=== PATIENT | female | born 1985 | race Caucasian/White ===

== ENCOUNTER 2016-12-12 23:55 | Outpatient (CLI) | payer MEDICARE ==
[2016-12-13 00:49] LABS: APPEARANCE,URINE CLOUDY; BILIRUBIN,URINE NEGATIVE (NEGATIVE); CALCIUM OXALATE CRYSTALS,URINE TOO NUMEROUS TO CNT /HPF; GLUCOSE, URINE NEGATIVE (NEGATIVE); KETONES,URINE NEGATIVE (NEGATIVE); LEUKOCYTE ESTERASE,URINE TRACE (NEGATIVE); NITRITE,URINE NEGATIVE (NEGATIVE); PROTEIN,URINE NEGATIVE (NEGATIVE); URINE SPECIFIC GRAVITY 1.026; UROBILINOGEN,URINE NEGATIVE mg/dL (<2.0)
[2016-12-13 01:02] LABS: URINE BARBITURATES SCREEN NEGATIVE; URINE METHADONE SCREEN NEGATIVE; URINE PHENCYCLIDINE SCREEN NEGATIVE
[2016-12-13] MEDS ORDERED: HYDROXYZINE PAMOATE 50 MG CAPSULE PO ONE (01:03)
[2016-12-13] MEDS ORDERED: HYDROXYZINE PAMOATE 50 MG CAPSULE ONE (01:08)
--- NOTE | 2016-12-13 04:49 | L&D Flow Sheet ---
LD Flowsheet Datetime Report Generated by CPN: 12/13/2016 04:45 Datetime: 12/13/2016 01:11 Vital Signs Stage of : OB Triage (Crystal [place], RN) Communication Comments: Pt left unit ambulatory, Pt care relinquished. (Crystal Nuha, RN) Datetime: 12/13/2016 01:04 Medications Antiemetics/Antacids: Vistaril (mg) @ 50 mg (Crystal [place], RN) Datetime: 12/13/2016 01:00 Vital Signs Stage of : OB Triage (Rosalinda Breen RN) Strip Reviewed by: Lizbeth Breen RN (Rosalinda Gregorys, LUIS) Communication Communication: Provider Orders Received; Call/Page Placed to Provider (Rosalinda Breen RN) Provider Notified (Name): Schaefer (Rosalinda Breen RN) Notification Reason: Status Update; Pain (Rosalinda Breen RN) Communication Comments: Received orders to offer pt 50 mg vistaril PO and encourage to drink water, Pt may DC home with dehydration information. (Rosalinda Breen RN) Datetime: 12/13/2016 00:33 Uterine Activity Monitor Mode: External; Palpation (Crystal Nuha, RN) Frequency (min): 0 (Crystal Nuha, RN) Resting Tone (Palpate): Relaxed (Crystal [place], RN) Assessment A Monitor Mode: External US (Crystal [place], RN) FHR Baseline Rate : 130 (Crystal Nuha, RN) Variability: Moderate 6-25 bpm (Crystal [place], RN) Accelerations: 15X15 (Crystal Nuha, RN) Decelerations: None (Crystal Nuha, RN) Patient Care Patient Position/Activity: Left Lateral (Crystal Nuha, RN) I/O Interventions: Clear Liquids Given (Crystal [place], RN) Datetime: 12/13/2016 00:24 NBP Sys/Kimberly/Mean (mmHg): 132 (QS system process) : 73 (QS system process) : 96 (QS system process) Pulse: 102 (QS system process) Datetime: 12/13/2016 00:06 Pain Pain Scale: 3 (Crystal [place], RN) Pain Presence: Intermittent (Crystal Nuha, RN) Pain Type: Pressure; Ache (Crystal Nuha, RN) Pain Location: Back; Perineum; Coccyx; Sacrum (Crystal [place], RN) Pain Goal: 2 (Crystal [place], RN) Pain Relief Measures: Comfort Measures (Crystal Nuha, RN) Vaginal Exam Vaginal Bleeding: None (Crystal Nuha, RN) Maternal Assessment Level of Consciousness: Fully Conscious (Crystal [place], RN) DTR's/Clonus: DTRs 1+; No Clonus (Crystal Nuha, RN) Headache: Denies (Crystal Nuha, RN) Breath Sounds, Left: Clear and Equal (Crystal Nuha, RN) Breath Sounds, Right: Clear and Equal (Crystal [place], RN) Nausea/Vomiting: Denies (Crystal [place], RN) RUQ Epigastric Pain: Denies (Crystal [place], RN) Teaching Instructional Method: Verbal; Patient Instructed; Verbalized Understanding (Rosalinda Breen RN) Plan of Care: Plan of Care Discussed (Rosalinda Breen RN) Unit Routine: Odem to Room; Call Melvin; Bed (Rosalinda Breen RN) Pain Management: Comfort Measures (Rosalinda Breen RN) Related: Common Discomforts of (Rosalinda Breen RN)
--- NOTE | 2016-12-13 04:49 | L&D Admission Assessment ---
LD ADM ASMT Datetime Report Generated by CPN: 12/13/2016 04:45 PATIENT ASSESSMENT Assessment Type: Triage (12/13/2016 00:06:Crystal Fenton, RN) WEIGHT Weight (lb): 367 (12/13/2016 00:36:QS system process) Weight (kg): 166.8 (12/13/2016 00:36:QS system process) PAIN Pain Scale: 3 (12/13/2016 00:06:Crystal Nuha, RN) Pain Presence: Intermittent (12/13/2016 00:06:Crystal Fenton, RN) Pain Type: Pressure; Ache (12/13/2016 00:06:Crystal Fenton, RN) Pain Location: Back; Perineum; Coccyx; Sacrum (12/13/2016 00:06:Crystal Fenton, RN) Pain Goal: 2 (12/13/2016 00:06:Crystal Fenton, RN) Pain Related to Contraction: No (12/13/2016 00:06:Crystal Nuha, RN) CONTRACTIONS Frequency (min): 0 (12/13/2016 00:33:Crystal Fenton, RN) Resting Tone [place]: Relaxed (12/13/2016 00:33:Crystal Nuha, RN) NEURO Level of Consciousness: Fully Conscious (12/13/2016 00:06:Crystal Fenton, RN) DTR's/Clonus: DTRs 1+; No Clonus (12/13/2016 00:06:Crystal Fenton, RN) Headache: Denies (12/13/2016 00:06:Crystal Fenton, RN) Dizziness: No (12/13/2016 00:06:Crystal Nuha, RN) Blurred Vision: No (12/13/2016 00:06:Crystal Nuha, RN) Extremity Numbness/Tingling : Right Arm (12/13/2016 00:06:Crystal Nuha, RN) Extremity Movement: Full Range of Motion (12/13/2016 00:06:Crystal Fenton, RN) CARDIOVASCULAR Heart Rhythm: Regular (12/13/2016 00:06:Crystal Nuha, RN) Nailbeds: [place] (12/13/2016 00:06:Crystal Nuha, RN) Capillary Refill: Less than 3 Seconds (12/13/2016 00:06:Crystal Nuha, RN) Lower Extremities Edema: Bilateral Lower Extremities (12/13/2016 00:06:Crystal Fenton, RN) Lower Extremities Edema Degree: 1+ (12/13/2016 00:06:Crystal Nuha, RN) Upper Extremities Edema: None (12/13/2016 00:06:Rosalinda Breen RN) Upper Extremities Edema Degree: None (12/13/2016 00:06:Rosalinda Breen RN) Facial Edema: None (12/13/2016 00:06:Rosalinda Breen RN) Geovanni's Sign Left Leg: Negative (12/13/2016 00:06:Rosalinda Gregorys RN) Geovanni's Sign Right Leg: Negative (12/13/2016 00:06:Rosalinda Fenton, RN) DVT RISK ASSESSMENT DVT Risk Age: Age less than 41 years (12/13/2016 00:06:Rosalinda Breen RN) DVT Risk BMI: BMI >50 (Venous Stasis Syndrome) (12/13/2016 00:06:Rosalinda Breen RN) DVT Risk Surgery: None Applicable (12/13/2016 00:06:Rosalinda Breen RN) DVT Risk Other: None Applicable (12/13/2016 00:06:Rosalinda Breen RN) DVT Risk Total: 3 (12/13/2016 00:06:QS system process) DVT Risk Text: High Risk (20-40%)- Consider stockings, compresssion device, pharmacological therapy per hospital policy (12/13/2016 00:06:QS system process) RESPIRATORY Respiratory Effort: Labored; Regular Rhythm; Equal Expansion (12/13/2016 00:06:Crystal Fenton, RN) Breath Sounds, Left: Clear and Equal (12/13/2016 00:06:Crystal Fenton, RN) Breath Sounds, Right: Clear and Equal (12/13/2016 00:06:Crystal Nuha, RN) Cough Productivity: None (12/13/2016 00:06:Crystal Nuha, RN) GASTROINTESTINAL Nausea/Vomiting: Denies (12/13/2016 00:06:Crystal Nuha, RN) Bowel Sounds: Normoactive (12/13/2016 00:06:Crystal Nuha, RN) RUQ Epigastric Pain: Denies (12/13/2016 00:06:Crystal Nuha, RN) Bowel Patterns: Soft, Formed Stool (12/13/2016 00:06:Crystal Fenton, RN) Hemorrhoids: None (12/13/2016 00:06:Crystal Fenton, RN) Diet Type: Regular diet (12/13/2016 00:06:Crystal Fenton, RN) Last Meal: 12/13/2016 17:00 (12/13/2016 00:06:Crystal Nuha, RN) GENITOURINARY Bladder: Nondistended (12/13/2016 00:06:Crystal Fenton, RN) Frequency of Urination: No (12/13/2016 00:06:Crystal Nuha, RN) Urination Burning: No (12/13/2016 00:06:Crystal Fenton, RN) CVA Tenderness: No (12/13/2016 00:06:Crystal Fenton, RN) Vaginal Bleeding: None (12/13/2016 00:06:Crystal Fenton, RN) Vaginal Discharge Amount: None (12/13/2016 00:06:Crystal Nuha, RN) Vaginal Discharge Color: N/A (12/13/2016 00:06:Crystal Fenton, RN) Vaginal Discharge Odor: Odorous (12/13/2016 00:06:Crystal Nuha, RN) Vaginal Discharge Character: None (12/13/2016 00:06:Crystal Fenton, RN) INTEGUMENTARY Skin Color: Normal for Race (12/13/2016 00:06:Crystal Nuha, RN) Skin Temperature: Warm (12/13/2016 00:06:Crystal Nuha, RN) Skin Moisture: Dry (12/13/2016 00:06:Crystal Fenton, RN) DALJIT SKIN ASSESSMENT Daljit Scale Sensory Perception: No Impairment- Responds to verbal commands. Has no sensory deficit which would limit ability to feel or voice pain or discomfort (12/13/2016 00:06:Rosalinda Breen RN) Daljit Scale Moisture: Rarely Moist- Skin is usually dry. Linen only requires changing at routine intervals (12/13/2016 00:06:Rosalinda Breen RN) Daljit Scale Activity: Walks Frequently- Walks outside the room at least twice a day and inside room at least every 2 hours during the day. (12/13/2016 00:06:Rosalinda Breen RN) Daljit Scale Mobility: No Limitations- Makes major and frequent changes in position without assistance (12/13/2016 00:06:Rosalinda Breen RN) Daljit Scale Nutrition: Excellent- Eats most of every meal. Never refuses a meal. Usually eats a total of 4 or more servings of meat and dairy products. Occasionally eats between meals. Does not require supplementation (12/13/2016 00:06:Rosalinda Breen RN) Daljit Scale Friction and Shear: No Apparent Problem- Moves in bed and in chair independently and has sufficient muscle strength to lift up completely during move. Maintains good position in bed or chair at all times (12/13/2016 00:06:Rosalinda Breen RN) Daljit Scale Total: 23 (12/13/2016 00:06:QS system process) Daljit Scale Risk: No Risk of Pressure Ulcer Noted at this Time (12/13/2016 00:06:QS system process) SUPPORT Family Support: Family supportive (12/13/2016 00:06:Crystal Fenton, RN) Emotional State: Calm/Relaxed (12/13/2016 00:06:Crystal Fenton, RN) SAFETY Call Melvin Within Reach: Yes (12/13/2016 00:06:Crystal Nuha, RN) Side Rails Up: Yes (12/13/2016 00:06:Crystal Fenton, RN) Bed Wheels Locked: Yes (12/13/2016 00:06:Crystal Fenton, RN) Arm Bands Present: Yes (12/13/2016 00:06:Crystal Fenton, RN) Isolation: [place] (12/13/2016 00:06:Crystal Fenton, RN) FALL SCREEN Fall Risk History of Falling: (0) No (12/13/2016 00:06:Rosalinda Breen RN) Fall Risk Secondary Diagnosis: (0) No (12/13/2016 00:06:Rosalinda Breen RN) Fall Risk Ambulatory Aid: (0) None/Bedrest/Wheelchair/Nurse Assist (12/13/2016 00:06:Rosalinda Breen RN) Fall Risk IV Therapy: (0) No (12/13/2016 00:06:Rosalinda Breen RN) Fall Risk Gait: (0) Normal/Bedrest/Immobile (12/13/2016 00:06:Rosalinda Breen RN) Fall Risk Mental Status: (0) Oriented to Own Ability (12/13/2016 00:06:Rosalinda Breen RN) Fall Risk Score: 0 (12/13/2016 00:06:QS system process) Fall Risk Score Definition: No Risk: No action required (12/13/2016 00:06:QS system process) RECENT TRAVEL/INFECTIOUS DISEASE Recent Exp Communicable Disease: No (12/13/2016 00:06:Rosalinda Breen RN) Cough or Fever: No (12/13/2016 00:06:Rosalinda Breen RN) Foreign Travel Past 10 Days: No (12/13/2016 00:06:Rosalinda Breen RN) Open Wounds or Sores: No (12/13/2016 00:06:Rosalinda Breen RN) Prior Antibiotic Resistance Tx: No (12/13/2016 00:06:Rosalinda Breen RN) Cultures Obtained: Not Applicable (12/13/2016 00:06:Rosalinda Breen RN) Isolation Initiated: No (12/13/2016 00:06:Rosalinda Breen RN) Pt/Family Education: Not Applicable (12/13/2016 00:06:Rosalinda Breen RN) BABY A FHR Baseline Rate (bpm) Baby A: 130 (12/13/2016 00:33:Rosalinda Breen RN) Variability Baby A: Moderate 6-25 bpm (12/13/2016 00:33:Rosalinda Breen RN) Accelerations Baby A: 15X15 (12/13/2016 00:33:Rosalinda Breen RN) Decelerations Baby A: None (12/13/2016 00:33:Rosalinda Breen RN)
--- NOTE | 2016-12-13 04:49 | L&D Current Admission ---
Current Admit Datetime Report Generated by CPN: 12/13/2016 04:45 ADMISSION INFORMATION Chief Complaint: Other (Annotations: "Pressure and pain in butt and crotch area") (12/13/2016 00:06:Rosalinda Breen RN)
--- NOTE | 2016-12-13 04:49 | L&D General Admission ---
General Admit Datetime Report Generated by CPN: 12/13/2016 04:45 INFORMATION Patient Age: 31 (12/12/2016 23:55:QS system process) EDC: 02/21/2017 00:00 (12/13/2016 00:01:Vale Small RN) : 1 (12/13/2016 00:01:Vale Small RN) Para: 0 (12/13/2016 01:18:Rosalinda Breen RN) Para: 0 (12/13/2016 00:01:Vale Small RN) Term: 0 (12/13/2016 00:01:Vale Small RN) : 0 (12/13/2016 00:01:Vale Small RN) Spontaneous Abortions: 0 (12/13/2016 00:01:Vale Small RN) Induced Abortions: 0 (12/13/2016 00:01:Vale Small RN) Livin (12/13/2016 00:01:Vale Small RN) Cesareans: 0 (12/13/2016 00:01:Vale Small RN) VBACs: 0 (12/13/2016 00:01:Vale Small RN) Ectopic: 0 (12/13/2016 00:01:Vale Small RN) Multiple Births: 0 (12/13/2016 00:01:Vale Small RN) Baby, Number in Womb: 1 (12/13/2016 01:18:Rosalinda Breen RN) Baby, Number in Womb: 1 (12/13/2016 00:01:Vale Small RN) CARE Primary Real Estate Sales Agent: [facility] (12/13/2016 00:01:Vale Small RN) Adequate Care: Yes (12/13/2016 00:01:Rosalinda Breen RN) Height (in): 64 (12/13/2016 00:36:QS system process) ALLERGIES Medication Allergy: No (12/13/2016 00:01:Vale Small RN) Medication Allergies: No Known Allergies (11/12/2016) (12/12/2016 23:55:QS system process) Latex Allergy: No Latex Allergies (12/13/2016 00:01:Rosalinda Breen RN) COMMUNICATION Primary Language: Hungarian (12/13/2016 00:01:Rosalinda Breen RN) Communication Barrier(s): None (12/13/2016 00:01:Rosalinda Breen RN) DEMOGRAPHICS Address: [address] [place] [id number] (12/12/2016 23:55:QS system process) Zipcode: [address] (12/12/2016 23:55:QS system process) Home (12/12/2016 23:55:QS system process) SSN: [id number] (12/12/2016 23:55:QS system process) Next of Kin Name: DAVID CAMPOS (12/12/2016 23:55:QS system process) Next of Kin (12/12/2016 23:55:QS system process) Next of Kin Relationship: FA (12/12/2016 23:55:QS system process) Date of : 1985 (12/12/2016 23:55:QS system process) Marital Status: Single (12/12/2016 23:55:QS system process) Sex: Female (12/12/2016 23:55:QS system process) Race: (12/12/2016 23:55:QS system process) Ethnicity: Non- or (12/12/2016 23:55:QS system process) Jewish: None (12/12/2016 23:55:QS system process) DRUG AND ALCOHOL USE Alcohol: No (12/13/2016 00:01:Rosalinda Breen RN) Cigarettes: Never Smoker. [id number] (12/13/2016 00:01:Rosalinda Breen RN) Marijuana: No (12/13/2016 00:01:Rosalinda Breen RN) Cocaine: No (12/13/2016 00:01:Rosalinda Breen RN) Other Illicit Drugs: No (12/13/2016 00:01:Rosalinda Breen RN) VACCINE HISTORY Influenza Vaccine: Yes (12/13/2016 00:01:Rosalinda Breen RN) Influenza Date: 2015 (12/13/2016 00:01:Rosalinda Breen RN) Pneumococcal Vaccine: Yes (12/13/2016 00:01:Rosalinda Breen RN) Pneumococcal Date: 2015 (12/13/2016 00:01:Rosalinda Breen RN) Tetanus Vaccine: Uncertain (12/13/2016 00:01:Rosalinda Breen RN) Tdap Vaccine: No (12/13/2016 00:01:Rosalinda Breen RN) Hepatitis B Vaccine: No (12/13/2016 00:01:Rosalinda Breen RN) Feeding Preference: Breast (12/13/2016 00:01:Rosalinda Breen RN) Benefit of Breast Feed Discussed: Yes (12/13/2016 00:01:Rosalinda Breen RN) Circumcision: Yes (12/13/2016 00:01:Rosalinda Breen RN) Classes Attended: No (12/13/2016 00:01:Rosalinda Breen RN) Tubal Ligation: No (12/13/2016 00:01:Rosalinda Breen RN) Tubal Authorization Signed: N/A (12/13/2016 00:01:Rosalinda Breen RN) Consent: N/A (12/13/2016 00:01:Rosalinda Breen RN) Consent Signed: N/A (12/13/2016 00:01:Rosalinda Breen RN) Pain Management Plans: Local (12/13/2016 00:01:Rosalinda Breen RN) Plans for Labor and Delivery: None (12/13/2016 00:01:Rosalinda Breen RN) Support Person: David Campos (12/13/2016 00:01:Rosalinda Breen RN) Support Person Relationship: Other (12/13/2016 00:01:Rosalinda Breen RN) Other Relationship: Father (12/13/2016 00:01:Rosalinda Breen RN) Cultural/Spritual Practice: No (12/13/2016 00:01:Rosalinda Breen RN) Spir/Cult Dietary Needs: No (12/13/2016 00:01:Rosalinda Breen RN) LIVING SITUATION/DISCHARGE PLAN Living Arrangements: House (12/13/2016 00:01:Rosalinda Breen RN) Adequate Access to:: Electric; Heat; Refrigeration; Plumbing/Running water; Phone; Transportation (12/13/2016 00:01:Rosalinda Breen RN) WIC Program: Yes (12/13/2016 00:01:Rosalinda Breen RN) Discharge Forestry And Wildlife Manager Person: David Campos (12/13/2016 00:01:Rosalinda Breen RN) Person to Help after Discharge: David Campos (12/13/2016 00:01:Rosalinda Breen RN) Currently Using Commun Resources: Yes (12/13/2016 00:01:Rosalinda Breen RN) Outside Agency/Protective Officer: Yes (12/13/2016 00:01:ADRIAN Carreon Car Seat for Discharge: Yes (12/13/2016 00:01:Rosalinda Breen RN) Adoption Requested: No (12/13/2016 00:01:Rosalinda Breen RN) Pt Contact w/ Post : N/A (12/13/2016 00:01:Rosalinda Breen RN) LABS Blood Type: B Positive (12/13/2016 00:01:Vale Small RN) Antibody Screen: Negative (12/13/2016 00:01:Vale Small RN) Rho(G) this : Not Applicable (12/13/2016 00:01:Vale Small RN) RPR/VDRL: Nonreactive (12/13/2016 00:01:Vale Small RN) HIV Results: Negative (12/13/2016 00:01:Vale Small RN) Hepatitis B: Negative (12/13/2016 00:01:Vale Small RN) Rubella: Non-Immune (12/13/2016 00:01:Vale Small RN) OB/PREVIOUS HISTORY Current Procedures: Ultrasound (12/13/2016 00:01:Rosalinda Breen RN) History of Previous : No (12/13/2016 00:01:Rosalinda Breen RN) History of Gestational Diabetes: No (12/13/2016 00:01:Rosalinda Breen RN) History of PIH: No (12/13/2016 00:01:Rosalinda Breen RN) History of Incompetent Cervix: No (12/13/2016 00:01:Rosalinda Breen RN) History of Placenta Previa/Abrup: No (12/13/2016 00:01:Rosalinda Breen RN) History of Macrosomia: No (12/13/2016 00:01:Rosalinda Breen RN) History of IUGR: No (12/13/2016 00:01:Rosalinda Breen RN) History of Hemorrhage: No (12/13/2016 00:01:Rosalinda Breen RN) History of Loss/Stillborn: No (12/13/2016 00:01:Rosalinda Breen RN) History of : No (12/13/2016 00:01:Rosalinda Breen RN) History of D (Rh) Sensitization: No (12/13/2016 00:01:Rosalinda Breen RN) History Recurrent Loss/Stillborn: No (12/13/2016 00:01:Rosalinda Breen RN) History Depression/PP Depression: Yes (12/13/2016 00:01:Rosalinda Breen RN) History of Uterine Anomaly/JAVIER: No (12/13/2016 00:01:Rosalinda Breen RN) History of Infertility: No (12/13/2016 00:01:Rosalinda Breen RN) History of ART Treatment: No (12/13/2016 00:01:Rosalinda Breen RN) History of JAVIER: No (12/13/2016 00:01:Rosalinda Breen RN) MEDICAL HISTORY Med Hx Diabetes: No (12/13/2016 00:01:Rosalinda Breen RN) Med Hx Hypertension: No (12/13/2016 00:01:Rosalinda Breen RN) Med Hx Heart Disease: No (12/13/2016 00:01:Rosalinda Breen RN) Med Hx Autoimmune Disorder: No (12/13/2016 00:01:Rosalinda Breen RN) Med Hx Kidney Disease/UTI: No (12/13/2016 00:01:Rosalinda Breen RN) Med Hx Neurologic/Epilepsy: No (12/13/2016 00:01:Rosalinda Breen RN) Med Hx Psychiatric Disorders: Yes (12/13/2016 00:01:Vale Small RN) Med Hx Hepatitis/Liver Disease: No (12/13/2016 00:01:Rosalinda Breen RN) Med Hx Varicosities/Phlebitis: No (12/13/2016 00:01:Rosalinda Breen RN) Med Hx Thyroid Dysfunction: No (12/13/2016 00:01:Rosalinda Breen RN) Med Hx Trauma/Violence: No (12/13/2016 00:01:Rosalinda Breen RN) Med Hx Blood Transfusion: No (12/13/2016 00:01:Rosalinda Breen RN) Med Hx Pulmonary (Asthma,TB): Yes (12/13/2016 00:01:Vale Small RN) Med Hx Breast: No (12/13/2016 00:01:Rosalinda Breen RN) Med Hx ROD POINTER Surgery: No (12/13/2016 00:01:Rosalinda Breen RN) Med Hx Hospitalization/Surgery: No (12/13/2016 00:01:Rosalinda Breen RN) Med Hx Anesthetic Complications: No (12/13/2016 00:01:Rosalinda Breen RN) Med Hx Abnormal Pap Smear: No (12/13/2016 00:01:Rosalinda Breen RN) Other Medical Diseases: No (12/13/2016 00:01:Rosalinda Breen RN) Med Hx Significant Family Hx: No (12/13/2016 00:01:Rosalinda Breen RN) Details of Med/Surg Hx: Bipolar-off meds x 1 year; Asthma (12/13/2016 00:01:Vale Small RN) INFECTIOUS HISTORY Inf Hx Gonorrhea: No (12/13/2016 00:01:Rosalinda Breen RN) Inf Hx Chlamydia: No (12/13/2016 00:01:Rosalinda Breen RN) Inf Hx Syphilis: No (12/13/2016 00:01:Rosalinda Breen RN) Inf Hx HIV/AIDS: No (12/13/2016 00:01:Rosalinda Breen RN) Inf Hx Human Papilloma Virus: No (12/13/2016 00:01:Rosalinda Breen RN) Inf Hx Pt/Partner Genital Herpes: No (12/13/2016 00:01:Rosalinda Breen RN) Inf Hx Tuberculosis/Exposure: No (12/13/2016 00:01:Rosalinda Breen RN) Inf Hx Hepatitis B,C: No (12/13/2016 00:01:Rosalinda Breen RN) Inf Hx Rash or Viral Illness: No (12/13/2016 00:01:Rosalinda Breen RN) GENETIC HISTORY Gen Hx Age >=35 at TRINH: No (12/13/2016 00:01:Rosalinda Breen RN) Gen Hx Thalassemia: No (12/13/2016 00:01:Rosalinda Breen RN) Gen Hx Congenital Heart Defect: No (12/13/2016 00:01:Rosalinda Breen RN) Gen Hx Neural Tube Defect: No (12/13/2016 00:01:Rosalinda Breen RN) Gen Hx Down's Syndrome: No (12/13/2016 00:01:Rosalinda Breen RN) Gen Hx Edinson-Sachs: No (12/13/2016 00:01:Rosalinda Breen RN) Gen Hx Jodie: No (12/13/2016 00:01:Rosalinda Breen RN) Gen Hx Familial Dysautonomia: No (12/13/2016 00:01:Rosalinda Breen RN) Gen Hx Sickle Cell Disease/Trait: No (12/13/2016 00:01:Rosalinda Breen RN) Gen Hx Hemophilia/Blood Disorder: No (12/13/2016 00:01:Rosalinda Breen RN) Gen Hx Muscular Dystrophy: No (12/13/2016 00:01:Rosalinda Breen RN) Gen Hx Cystic Fibrosis: No (12/13/2016 00:01:Rosalinda Breen RN) Gen Hx Huntingtons Chorea: No (12/13/2016 00:01:Rosalinda Breen RN) Gen Hx Mental Retardation/Autism: Yes (12/13/2016 00:01:Rosalinda Breen RN) Gen Hx Tested for Fragile X: No (12/13/2016 00:01:Rosalinda Breen RN) Gen Hx Other Inher/Chromosomal: No (12/13/2016 00:01:Rosalinda Breen RN) Gen Hx Maternal Metabolic DO: Yes (12/13/2016 00:01:Rosalinda Breen RN) Gen Hx Pt Father or FOB Defect: No (12/13/2016 00:01:Rosalinda Breen RN) Gen Hx Other Genetic History: No (12/13/2016 00:01:Rosalinda Breen RN) Gen Hx Drugs/Meds since LMP: No (12/13/2016 00:01:Rosalinda Breen RN) Details of Genetic History: Mothers side diabetes FOB possibly autistic receiving testing (12/13/2016 00:01:Rosalinda Breen RN)
--- NOTE | 2016-12-13 04:49 | Antepartum Discharge Summary ---
Antepartum DC Datetime Report Generated by CPN: 12/13/2016 04:45 DIET/ACTIVITY/RESTRICTIONS Diet: Regular (12/13/2016 01:18:Crystal Nuha, RN) Activity: Normal Activity (12/13/2016 01:18:Crystal Nuha, RN) TEACHING/INSTRUCTIONS/REFERRALS Instructions Given To: Pt and father (12/13/2016 01:18:Crystal Nuha, RN) Instructions Understood: Patient Verbalized Understanding; Support Person Verbalized Understanding (12/13/2016 01:18:Rosalinda Breen RN) Referrals: None (12/13/2016 01:18:Rosalinda Breen RN) Educational Materials- Other: Dehydration, [facility] approved med list (12/13/2016 01:18:Rosalinda Breen RN) DISCHARGE INFORMATION Discharged AMA: No (12/13/2016 01:18:Rosalinda Breen RN) Discharge Date/Time: 12/13/2016 01:19 (12/13/2016 01:18:Rosalinda Breen RN) Discharged To: Home (12/13/2016 01:18:Rosalinda Breen RN) Discharge Provider Name: Schaefer (12/13/2016 01:18:Rosalinda Breen RN) Accompanied By: Father (12/13/2016 01:18:Rosalinda Breen RN) Discharge Method: Ambulatory (12/13/2016 01:18:Rosalinda Breen RN) Condition: Stable (12/13/2016 01:18:Rosalinda Breen RN) FOLLOW UP INFORMATION Follow Up With: [facility] (12/13/2016 01:18:Rosalinda Breen RN) Follow Up On: As Scheduled (12/13/2016 01:18:Rosalinda Breen RN) Follow Up Phone Number: [facility] - (12/13/2016 01:18:Rosalinda Breen RN)
--- NOTE | 2016-12-13 04:49 | L&D Discharge Summary ---
OB Discharge Summary Datetime Report Generated by CPN: 12/13/2016 04:45 DISCHARGE DIAGNOSIS Diagnosis/Symptoms: False Labor; Dehydration Diagnoses/Symptoms Other: Received orders to offer pt 50 mg vistaril PO and encourage to drink water, Pt may DC home with dehydration information. Treatment/Procedures Other: 50 Mg vistaril PO Number of Babies in Womb: 1 Parity: 0 DIET/ACTIVITY/RESTRICTIONS Diet: Regular Activity: Normal Activity TEACHING/INSTRUCTIONS/REFERRALS Instructions Given To: Pt and father Instructions Understood: Patient Verbalized Understanding; Support Person Verbalized Understanding Referrals: None Educational Materials- Other: Dehydration, [facility] approved med list DISCHARGE INFORMATION Discharged AMA: No Discharge Date/Time: 12/13/2016 01:19 Discharged To: Home Discharge Provider Name: Schaefer Accompanied By: Father Discharge Method: Ambulatory Condition: Stable FOLLOW UP INFORMATION Follow Up With: [facility] Follow Up On: As Scheduled Follow Up Phone Number: [facility] -
== END 2016-12-13 01:11 | disposition home or self-care (01) ==
LOC: LC 23:55
PROVIDERS: ATTEND Obstetrics & Gynecology
PROC: 4A1HXCZ Monitoring of Products of Conception, Cardiac Rate, External Approach (ICD-10-PCS; principal; 2016-12-12)
DX: Z34.93 Encounter for supervision of normal pregnancy, unspecified, third trimester (principal); Z3A.30 30 weeks gestation of pregnancy
CPT/HCPCS: 80307; 81001; 59899; A9270

== ENCOUNTER 2017-01-18 08:45 | Outpatient (CLI) | payer MEDICARE, MEDICAID ==
[2017-01-18 09:36] LABS: APPEARANCE,URINE SLIGHTLY-CLOUDY; BILIRUBIN,URINE NEGATIVE (NEGATIVE); GLUCOSE, URINE NEGATIVE (NEGATIVE); KETONES,URINE NEGATIVE (NEGATIVE); LEUKOCYTE ESTERASE,URINE NEGATIVE (NEGATIVE); NITRITE,URINE NEGATIVE (NEGATIVE); PROTEIN,URINE NEGATIVE (NEGATIVE); URINE SPECIFIC GRAVITY 1.023; UROBILINOGEN,URINE NEGATIVE mg/dL (<2.0)
[2017-01-18 09:48] LABS: URINE BARBITURATES SCREEN NEGATIVE; URINE METHADONE SCREEN NEGATIVE; URINE OPIATES LOW NEGATIVE; URINE PHENCYCLIDINE SCREEN NEGATIVE
[2017-01-18 09:51] LABS: BASOPHILS % (AUTO) 0.4 % (0-2); EOSINOPHILS % (AUTO) 1.8 % (0-6); HEMATOCRIT 36.2 % (36.0-47.0); HEMOGLOBIN 12.6 g/dL (12.0-15.5); HGB HCT DIFFERENCE 1.6; LYMPHOCYTES % (AUTO) 16.7 % (13-45); MEAN CORPUSCULAR HEMOGLOBIN 31.7 pg (27.0-33.4); MEAN CORPUSCULAR HGB CONC 34.7 g/dL (32.0-36.0); MEAN CORPUSCULAR VOLUME 91 fl (80-97); MONOCYTES % (AUTO) 5.6 % (3-13); RED BLOOD COUNT 3.97 10^6/uL (3.72-5.28); RED CELL DISTRIBUTION WIDTH 12.9 % (11.5-14.0); SEGMENTED NEUTROPHILS % (AUTO) 75.5 % (42-78); WHITE BLOOD COUNT 9.4 10^3/uL (4.0-10.5)
[2017-01-18 09:52] LABS: ABSOLUTE EOSINOPHILS # (AUTO) 0.2 10^3/uL (0.0-0.6); ABSOLUTE LYMPHOCYTES (AUTO) 1.6 10^3/uL (0.5-4.7); ABSOLUTE MONOCYTES (AUTO) 0.5 10^3/uL (0.1-1.4); ABSOLUTE NEUT (AUTO) 7.1 10^3/uL (1.7-8.2)
--- NOTE | 2017-01-18 10:01 | L&D Flow Sheet ---
LD Flowsheet Datetime Report Generated by CPN: 01/18/2017 10:00 Datetime: 01/18/2017 09:49 NBP Sys/Kimberly/Mean (mmHg): 140 (QS system process) : 65 (QS system process) : 94 (QS system process) Pulse: 77 (QS system process) LaborFlag: OB Triage (QS system process) Datetime: 01/18/2017 09:34 NBP Sys/Kimberly/Mean (mmHg): 138 (QS system process) : 82 (QS system process) : 104 (QS system process) Pulse: 80 (QS system process) LaborFlag: OB Triage (QS system process) Datetime: 01/18/2017 09:19 Vital Signs Stage of : OB Triage (Esme Coker RN) NBP Sys/Kimberly/Mean (mmHg): 142 (QS system process) : 73 (QS system process) : 99 (QS system process) Pulse: 83 (QS system process) Respirations: 16 (Esme Coker RN) Temperature (F): 98.3 (Esme Coker RN) Temperature (C): 36.8 (QS system process) Uterine Activity Monitor Mode: External (Esme Coker, LUIS) Monitor Interventions for UA: [place] Adjusted (Esme Coker, RN) Resting Tone (Palpate): Relaxed (Esme Coker, RN) Assessment A Monitor Mode: External US (Esme Coker, LUIS) Monitor Interventions for FHR: Ultrasound Adjusted (Esme Coker, LUIS) FHR Baseline Rate : 145 (Esme Coker, RN) Pain Pain Scale: 0 (Esme Coker, LUIS) Pain Presence: None/Denies (Esme Coker, LUIS) Pain Type: N/A (Esme Coker, LUIS) Pain Goal: 1 (Esme Coker, LUIS) Pain Relief Measures: Comfort Measures (Esme Coker, LUIS) Vaginal Exam Membrane Status: Intact (Esme Coker, RN) Vaginal Bleeding: None (Esem Anyluis a Coker, RN) Maternal Assessment Level of Consciousness: Fully Conscious (Esme Coker, RN) Headache: Denies (Esme Coker, RN) Nausea/Vomiting: Denies (Esme Coker, RN) RUQ Epigastric Pain: Denies (Esme Rendonnd, RN) Patient Care Patient Position/Activity: Left Lateral (Esme Coker, RN) Comfort Measures: Family Support (Esme Coker RN) I/O Interventions: Popsicle; Clear Liquids Given; Up to BR (Esme Coker RN) Teaching Instructional Method: Verbal; Patient Instructed; Family/Support Person Instructed; Verbalized Understanding (Esme Coker RN) Plan of Care: Plan of Care Discussed; Gestational Hypertension/Preeclampsia/Eclampsia (Esme Coker RN) Unit Routine: [place] to Room; Call [place]; Bed; Visiting Policy; Waiting Areas; Phone/Cell Phone Use; Unit Personnel; Handwashing; Monitoring; Safety/Fall Risk Prevention; Diet/Nutrition Services; Bathroom Privileges (Esme Coker RN) Pain Management: Pain Scale/Goals; Comfort Measures (Esme Coker RN) Related: Common Discomforts of ; Maternal Physical Changes; Maternal Emotional Changes; Nutrition; Hydration; Activity and Rest (Esme Coker RN) Communication Communication: RN at Bedside; RN Reviewed Strip (Esme Coker RN) Provider Notified (Name): Bari TAM CNM (Esme Coker, LUIS) Notification Reason: Status Update; Status; Maternal Vital Sign Change; Lab/Diagnostic Study (Esme Coker, LUIS) Communication Comments: ORDERS TO D/C MONITORS AFTER REACTIVE NST (Esme Coker, LUSI) LaborFlag: OB Triage (QS system process)
[2017-01-18 10:16] LABS: ALANINE AMINOTRANSFERASE 21 U/L (9-52); ALKALINE PHOSPHATASE 104 U/L (38-126); ANION GAP 9 (5-19); ASPARTATE AMINO TRANSFERASE 16 U/L (14-36); BILIRUBIN,TOTAL 0.6 mg/dL (0.2-1.3); BLOOD UREA NITROGEN 9 mg/dL (7-20); CALCIUM 9.3 mg/dL (8.4-10.2); CARBON DIOXIDE 21 mmol/L (22-30); CHLORIDE 103 mmol/L (98-107); GLUCOSE 97 mg/dL (75-110); LDH 395 U/L (313-618); SODIUM 133.4 mmol/L (137-145); TOTAL PROTEIN 6.3 g/dL (6.3-8.2); URIC ACID 6.4 mg/dL (2.5-6.2)
--- NOTE | 2017-01-18 10:52 | Non Stress Test Report ---
Non Stress Test Datetime Report Generated by CPN: 01/18/2017 10:51 DEMOGRAPHIC EGA NST: 35.1 INDICATION Indication for Study: Ordered by Provider; Other Indication for Study (NST) Other: PRE-E W/U MONITORING Monitor Explained: Monitor Explained; Test Explained; Patient Verbalized Understanding Time on Monitor: 01/18/2017 08:45 Time off Monitor: 01/18/2017 09:52 NST Duration: 67 NST INTERVENTIONS NST Interventions: PO Hydration; Reposition Patient Physician Notified NST: Bari COLIN, CNM REVIEWED STRIP BABY A: [id number] BABY A Movement : Present Contraction Frequency : NONE FHR Baseline : 135 Accelerations : 15X15 Decelerations : None Variability : Moderate 6-25bpm NST Review: Meets Criteria for Reactive NST NST Review and Verified By : Bari ROSSI NST Results: Reactive NST REPORT Report Trigger: Send Report
== END 2017-01-18 10:35 | disposition home or self-care (01) ==
LOC: LC 08:45
PROVIDERS: ATTEND Specialist
PROC: 4A1HXCZ Monitoring of Products of Conception, Cardiac Rate, External Approach (ICD-10-PCS; principal; 2017-01-18)
DX: O16.3 Unspecified maternal hypertension, third trimester (principal); Z3A.35 35 weeks gestation of pregnancy
CPT/HCPCS: 36415; 59025; 80053; 80307; 81001; 83615; 84550; 85025

== ENCOUNTER 2017-02-02 16:19 | Outpatient (CLI) | payer MEDICARE, MEDICAID ==
[2017-02-02 16:25] VITALS: BP 147/107
--- NOTE | 2017-02-02 17:46 | Non Stress Test Report ---
Non Stress Test Datetime Report Generated by CPN: 02/02/2017 17:45 DEMOGRAPHIC EGA NST: 37.2 INDICATION Indication for Study: Ordered by Provider MONITORING Monitor Explained: Monitor Explained; Test Explained; Patient Verbalized Understanding Time on Monitor: 02/02/2017 17:13 Time off Monitor: 02/02/2017 17:43 NST Duration: 30 NST INTERVENTIONS NST Interventions: None Physician Notified NST: HUNTER BABY A: [id number] BABY A Movement : Present Contraction Frequency : none FHR Baseline : 130 Accelerations : 15X15 Decelerations : None Variability : Moderate 6-25bpm NST Review: Meets Criteria for Reactive NST NST Review and Verified By : Farheen Mendez RN NST Results: Reactive NST REPORT Report Trigger: Send Report
--- NOTE | 2017-02-02 18:00 | L&D Flow Sheet ---
LD Flowsheet Datetime Report Generated by CPN: 02/02/2017 18:00 Datetime: 02/02/2017 17:40 Anesthesia Anesthesia Comments: Dr [place] called please come assess patient for anesthesia; pt plans on delivering at [place]. (Sachin Jessie, RN) Datetime: 02/02/2017 17:36 Vital Signs NBP Sys/Kimberly/Mean (mmHg): 130 (QS system process) : 64 (QS system process) : 89 (QS system process) Pulse: 87 (QS system process) LaborFlag: OB Triage (QS system process) Datetime: 02/02/2017 17:20 Communication Communication Comments: Dr Zamora called and notified of pt hx complaint, vs, labs done 01/18 for pre-eclampsia. Orders for CBC, CMP, LDH, Uric Acid. (Sachin Roman, RN) Datetime: 02/02/2017 17:15 Vital Signs NBP Sys/Kimberly/Mean (mmHg): 123 (QS system process) : 63 (QS system process) : 87 (QS system process) Pulse: 92 (QS system process) LaborFlag: OB Triage (QS system process)
[2017-02-02 18:10] LABS: ABSOLUTE EOSINOPHILS # (AUTO) 0.1 10^3/uL (0.0-0.6); ABSOLUTE LYMPHOCYTES (AUTO) 2.3 10^3/uL (0.5-4.7); ABSOLUTE MONOCYTES (AUTO) 0.5 10^3/uL (0.1-1.4); ABSOLUTE NEUT (AUTO) 5.8 10^3/uL (1.7-8.2); BASOPHILS % (AUTO) 0.3 % (0-2); EOSINOPHILS % (AUTO) 1.7 % (0-6); HEMATOCRIT 35.4 % (36.0-47.0); HEMOGLOBIN 12.2 g/dL (12.0-15.5); HGB HCT DIFFERENCE 1.2; LYMPHOCYTES % (AUTO) 26.2 % (13-45); MEAN CORPUSCULAR HEMOGLOBIN 31.7 pg (27.0-33.4); MEAN CORPUSCULAR HGB CONC 34.5 g/dL (32.0-36.0); MEAN CORPUSCULAR VOLUME 92 fl (80-97); MONOCYTES % (AUTO) 6.2 % (3-13); RED BLOOD COUNT 3.85 10^6/uL (3.72-5.28); RED CELL DISTRIBUTION WIDTH 13.5 % (11.5-14.0); SEGMENTED NEUTROPHILS % (AUTO) 65.6 % (42-78); WHITE BLOOD COUNT 8.8 10^3/uL (4.0-10.5)
[2017-02-02 18:25] LABS: APPEARANCE,URINE CLOUDY; BILIRUBIN,URINE NEGATIVE (NEGATIVE); CALCIUM OXALATE CRYSTALS,URINE MANY /HPF; GLUCOSE, URINE NEGATIVE (NEGATIVE); KETONES,URINE NEGATIVE (NEGATIVE); LEUKOCYTE ESTERASE,URINE SMALL (NEGATIVE); NITRITE,URINE NEGATIVE (NEGATIVE); PROTEIN,URINE NEGATIVE (NEGATIVE); URINE SPECIFIC GRAVITY 1.024; UROBILINOGEN,URINE NEGATIVE mg/dL (<2.0)
[2017-02-02 18:27] LABS: ALANINE AMINOTRANSFERASE 24 U/L (9-52); ALBUMIN 3.5 g/dL (3.5-5.0); ALKALINE PHOSPHATASE 120 U/L (38-126); ANION GAP 11 (5-19); ASPARTATE AMINO TRANSFERASE 15 U/L (14-36); BILIRUBIN,TOTAL 0.5 mg/dL (0.2-1.3); BLOOD UREA NITROGEN 12 mg/dL (7-20); CALCIUM 10.1 mg/dL (8.4-10.2); CARBON DIOXIDE 21 mmol/L (22-30); CHLORIDE 104 mmol/L (98-107); CREATININE RESULT 0.67 mg/dL (0.52-1.25); GLUCOSE 84 mg/dL (75-110); LDH 414 U/L (313-618); POTASSIUM 4.2 mmol/L (3.6-5.0); SODIUM 135.5 mmol/L (137-145); TOTAL PROTEIN 6.3 g/dL (6.3-8.2)
[2017-02-02 18:32] LABS: URINE BARBITURATES SCREEN NEGATIVE; URINE METHADONE SCREEN NEGATIVE; URINE OPIATES LOW NEGATIVE; URINE PHENCYCLIDINE SCREEN NEGATIVE
--- NOTE | 2017-02-02 20:00 | L&D Flow Sheet ---
LD Flowsheet Datetime Report Generated by CPN: 02/02/2017 20:00 Datetime: 02/02/2017 19:51 Additional Nursing Comments: Discharged home in stable condition. Patient transporting herself to [facility] for further evaluation. (Stephanie Ochoa RN) Datetime: 02/02/2017 19:37 Monitor Mode: Doppler (Stephanie Ochoa RN) FHR Baseline Rate : 135 (Stephanie Ochoa RN) Patient Care Comments: Patient allowed to change clothes while Dr. Zamora notifies [facility] Dr Barry that patient will be coming tonight. (Stephanie Ochoa RN) Datetime: 02/02/2017 19:36 NBP Sys/Kimberly/Mean (mmHg): 155 (QS system process) : 85 (QS system process) : 110 (QS system process) Pulse: 94 (QS system process) Respirations: 18 (Stephanie Ochoa RN) Temperature (F): 97.5 (Stephanie Ochoa RN) Temperature (C): 36.4 (QS system process) Temperature Route: Oral (Stephanie Ochoa RN) Pain Scale: 0 (Stephanie Ochoa RN) Pain Presence: None/Denies (Stephanie Ochoa RN) Pain Type: N/A (Stephanie Ochoa RN) LaborFlag: OB Triage (QS system process) Datetime: 02/02/2017 19:35 Pulse: 95 (QS system process) SpO2 (%): 100 (QS system process) LaborFlag: OB Triage (QS system process) Datetime: 02/02/2017 19:33 Communication Comments: Dr. Zamora at bedside and discussing POC. Patient to go to [facility] for further evaluation. Dr. Zamora spoke with Dr. Barry there to discuss POC and options for patient. [facility] (Stephanie Ochoa, LUIS) Datetime: 02/02/2017 19:30 Pulse: 91 (QS system process) SpO2 (%): 100 (QS system process) LaborFlag: OB Triage (QS system process) Datetime: 02/02/2017 19:25 Pulse: 92 (QS system process) SpO2 (%): 99 (QS system process) LaborFlag: OB Triage (QS system process) Datetime: 02/02/2017 19:21 NBP Sys/Kimberly/Mean (mmHg): 159 (QS system process) : 76 (QS system process) : 108 (QS system process) Pulse: 94 (QS system process) LaborFlag: OB Triage (QS system process) Datetime: 02/02/2017 19:18 Communication: Report Given to @ [facility] RN (Sachin Jessie, RN) Datetime: 02/02/2017 19:06 NBP Sys/Kimberly/Mean (mmHg): 164 (QS system process) : 75 (QS system process) : 108 (QS system process) Pulse: 93 (QS system process) LaborFlag: OB Triage (QS system process) Datetime: 02/02/2017 18:58 Communication Comments: Dr Zamora at bedside to assess patient and discuss plan of care. States he will contact [facility] to see if they will accept patient for assessment vs transfer of care to [facility] on Sunday. (Sachin Roman RN) Datetime: 02/02/2017 18:51 NBP Sys/Kimberly/Mean (mmHg): 139 (QS system process) : 69 (QS system process) : 95 (QS system process) Pulse: 86 (QS system process) LaborFlag: OB Triage (QS system process) Datetime: 02/02/2017 18:36 NBP Sys/Kimberly/Mean (mmHg): 114 (QS system process) : 56 (QS system process) : 81 (QS system process) Pulse: 78 (QS system process) LaborFlag: OB Triage (QS system process) Datetime: 02/02/2017 18:35 Communication Comments: Dr Zamora called and notified of pt swelling BLE +2 pitting edema, weight gain of 25lbs since 01/12; anesthesia consult denies delivery at [place]; Please come to assess patient. States he will come assess the patient. (Sachin Roman RN) Datetime: 02/02/2017 18:21 NBP Sys/Kimberly/Mean (mmHg): 130 (QS system process) : 62 (QS system process) : 89 (QS system process) Pulse: 100 (QS system process) LaborFlag: OB Triage (QS system process) Datetime: 02/02/2017 18:12 Monitor Mode: External; Palpation (Sachin Roman RN) Frequency (min): none/ pt denies (Sachin Roman RN) Resting Tone (Palpate): Relaxed (Sachin Roman RN) Monitor Mode: External US (Sachin Roman RN) FHR Baseline Rate : 130 (Sachin Roman RN) Variability: Moderate 6-25 bpm (Sachin Roman RN) Accelerations: 15X15 (Sachin Roman RN) Decelerations: None (Sachin Roman RN) I/O Interventions: Up to BR (Sachin Roman RN) Communication: RN at Bedside; RN Reviewed Strip (Sachin Roman RN) Datetime: 02/02/2017 18:06 NBP Sys/Kimberly/Mean (mmHg): 145 (QS system process) : 81 (QS system process) : 107 (QS system process) Pulse: 82 (QS system process) LaborFlag: OB Triage (QS system process) Datetime: 02/02/2017 18:03 Communication Comments: Dr Barnett in to assess patient; States pt is not safe to deliver at [facility] from anesthesia standpoint; Reccomends delivery at [facility]. Pt states understanding of instructions/ risks associated with delivery at [facility]. (Sachin Roman RN) Datetime: 02/02/2017 18:02 IV/Blood Work: Labs Drawn (Sachin Roman RN)
== END 2017-02-02 19:51 | disposition home or self-care (01) ==
LOC: ER 16:19 → LC 16:19 → EDSTATUS 16:50 → LC 19:51
PROVIDERS: ATTEND Obstetrics & Gynecology
PROC: 4A1HXCZ Monitoring of Products of Conception, Cardiac Rate, External Approach (ICD-10-PCS; principal; 2017-02-02)
DX: O26.93 Pregnancy related conditions, unspecified, third trimester (principal); O12.03 Gestational edema, third trimester; Z3A.37 37 weeks gestation of pregnancy
CPT/HCPCS: 36415; 59025; 80053; 80307; 81001; 83615; 84550; 85025

== ENCOUNTER 2018-02-08 20:35 | Emergency (ER) | payer MEDICARE, MEDICAID ==
--- NOTE | 2018-02-08 22:24 | ER Document Report ---
ED Skin Rash/Insect Bite/Abscs - General Chief Complaint: Rash Stated Complaint: POSSIBLE RASH Time Seen by Provider: 02/08/18 22:03 Mode of Arrival: Ambulatory Information source: Patient Notes: 32-year-old female presented ED for a rash to her bilateral arms legs trunk feet hands and neck. She states she has been in close contact with family in family members who have been diagnosed with scabies. Her rash does have multiple areas that formed little line such as a scabies lines. She states that the rash is getting worse as time progresses. She states it is very itchy. She is here with her significant other and child who both have similar rashes. TRAVEL OUTSIDE OF THE [place] IN LAST 30 DAYS: No - HPI Patient complains to provider of: Skin rash/lesion Onset: Other - States she cannot say exactly how long but is been multiple weeks Onset/Duration: Gradual, Worse Quality of pain: Other - Itchy Severity: None Pain Level: Denies Skin Character: Rash Quality of rash: Itchy Identify cause: Yes - States family member has been diagnosed with scabies Exacerbated by: Denies Relieved by: Denies Similar symptoms previously: Yes Recently seen / treated by doctor: No - Related Data Allergies/Adverse Reactions: No Known Allergies Allergy (Verified 02/02/17 17:44) Past Medical History - General Information source: Patient - Social History Smoking Status: Current Every Day Smoker Cigarette use (# per day): Yes - Half pack a day Chew tobacco use (# tins/day): No Smoking Education Provided: Yes - 4 minutes Frequency of alcohol use: Rare Drug Abuse: None Occupation: [employer] Lives with: Spouse/Significant other Family History: CAD, COPD, CVA, DM, Hyperlipidemia, Hypertension. denies: Malignancy, Thyroid Disfunction Patient has suicidal ideation: No Patient has homicidal ideation: No - Past Medical History Cardiac Medical History: Reports: None Pulmonary Medical History: Reports: Hx Asthma EENT Medical History: Reports: None Neurological Medical History: Reports: None Endocrine Medical History: Reports: None Malignancy Medical History: Reports: None GI Medical History: Reports: None Musculoskeltal Medical History: Reports None Skin Medical History: Reports None Psychiatric Medical History: Reports: Hx Anxiety, Hx Bipolar Disorder, Hx Depression Traumatic Medical History: Reports: None Infectious Medical History: Reports: None Past Surgical History: Reports: Hx Adenoidectomy, Hx Myringotomy, Hx Tonsillectomy Review of Systems - Review of Systems Constitutional: No symptoms reported EENT: No symptoms reported Cardiovascular: No symptoms reported Respiratory: No symptoms reported Gastrointestinal: No symptoms reported Genitourinary: No symptoms reported Female Genitourinary: No symptoms reported Musculoskeletal: No symptoms reported Skin: Rash - Generalized in little lines and from head to toe, she has rash between fingers and toes in all skin folds. Hematologic/Lymphatic: No symptoms reported Neurological/Psychological: No symptoms reported -: Yes All other systems reviewed and negative Physical Exam - Vital signs Vitals: Temp Pulse Resp BP Pulse Ox 97.7 F 95 18 146/105 H 98 02/08/18 20:40 02/08/18 20:40 02/08/18 20:40 02/08/18 20:40 02/08/18 20:40 Interpretation: Normal - General General appearance: Appears well, Alert - HEENT Head: Normocephalic, Atraumatic Eyes: Normal Pupils: PERRL - Respiratory Respiratory status: No respiratory distress Chest status: Nontender Breath sounds: Normal Chest palpation: Normal - Cardiovascular Rhythm: Regular Heart sounds: Normal auscultation Murmur: No - Abdominal Inspection: Normal Distension: No distension Bowel sounds: Normal Tenderness: Nontender Organomegaly: No organomegaly - Back Back: Normal, Nontender - Extremities General upper extremity: Normal inspection, Nontender, Normal color, Normal ROM , Normal temperature General lower extremity: Normal inspection, Nontender, Normal color, Normal ROM , Normal temperature, Normal weight bearing. No: Geovanni's sign - Neurological Neuro grossly intact: Yes Cognition: Normal Orientation: AAOx4 [place] Coma Scale Eye Opening: Spontaneous [place] Coma Scale Verbal: Oriented Shel[place] Coma Scale Motor: Obeys Commands Shelley Coma Scale Total: 15 Speech: Normal Motor strength normal: LUE, RUE, LLE, RLE Sensory: Normal - Psychological Associated symptoms: Normal affect, Normal mood - Skin Skin Temperature: Warm Skin Moisture: Dry Skin Color: Normal Skin irregularity: Rash Character of irregularity: Maculopapular, Linear, Erythematous, Urticarial Course - Re-evaluation Re-evalutation: 02/08/18 23:12 Patient was given instructions on permethrin and how to clean house after using this cream. Patient was instructed to clean linens and store them in plastic for week. Patient to follow-up with her primary doctor and recheck blood pressure. - Vital Signs Vital signs: Temp Pulse Resp BP Pulse Ox 98.5 F 85 20 135/90 H 100 02/08/18 22:45 02/08/18 22:45 02/08/18 22:45 02/08/18 22:45 02/08/18 22:45 Discharge - Discharge Clinical Impression: Scabies HTN (hypertension) Qualifiers: Hypertension type: unspecified Qualified Code(s): I10 - Essential (primary) hypertension Condition: Stable Disposition: HOME, SELF-CARE Instructions: Family Physicians / Practices Additional Instructions: Scabies Your exam suggests the presence of scabies, which are microscopic parasites of the skin. These mites jeremy through the skin, causing severe itching. The mite can be spread to other persons by skin contact. All clothing, towels, and bedding should be washed in very hot water, set aside for a week, then washed again. You should apply scabies-killing lotion from the neck down, then wash it off after 12 hours. You may need medication for itching, as the itch persists for many days after the mites have been killed. All family members and close personal contacts should be examined. Repeat treatment may be necessary if the infestation is not eliminated with a single treatment. Call the doctor if you develop increasing swelling and redness, red streaks , tender lumps, fever, or drainage from a skin sore. Diphenhydramine The use of diphenhydramine (Benadryl) has been recommended to control allergic symptoms. The 25 mg strength is available over- the-counter, as well as the elixir. This antihistamine is used for many symptoms. It's useful for itching, watering eyes and nose, allergic swelling, hives, and insect stings. The medication can be repeated four times daily. Age Elixir (12.5 mg/tsp) 25 mg pill 1 yr 1/4 tsp 2-3 yr 1/2 tsp 4-8 yr 1 tsp 9-14 yr 2 tsp one tab adult 1-2 tabs Antihistamines may cause drowsiness, especially with the first dose. Do not operate machinery or drive while under the effects of the medication. Do not combine the medication with alcohol, or with any other medication without talking to your doctor. FOLLOW-UP CARE: If you have been referred to a physician for follow-up care, call the physician s office for an appointment as you were instructed or within the next two days. If you experience worsening or a significant change in your symptoms, notify the physician immediately or return to the Emergency Department at any time for re-evaluation. Prescriptions: Permethrin [Elimite] 60 gm TP ONCE PRN #60 cream..g. PRN Reason: Forms: Elevated Blood Pressure, Smoking Cessation Education Referrals: TORSTEN JUAREZ MD [Primary Care Provider] - Follow up as needed
[2018-02-08 22:51] VITALS: BP 135/90
== END 2018-02-08 22:50 | disposition home or self-care (01) ==
LOC: ER 20:35
DX: B86 Scabies (principal); I10 Essential (primary) hypertension; R21 Rash and other nonspecific skin eruption; F17.210 Nicotine dependence, cigarettes, uncomplicated
CPT/HCPCS: 99282; 99406